=== PATIENT | female | born 1955 | race African-American/Black ===

== ENCOUNTER 2016-12-28 09:29 | Emergency (ER) | payer MEDICAID ==
[~2016-12-28] VITALS: Ht 160 cm; Wt 67.2 kg
[~2016-12-28 09:29] MED LIST: DORZ1SOL2 OU; OMEP10CA37 PO; QUET1TAB67 PO; REME15TA PO
[2016-12-28 09:32] VITALS: BP 109/78; PULSE 81; RESP 16; TEMP 97.6; O2SAT 96
[2016-12-28] MEDS ORDERED: TETANUS/DIPHTHERIA TOXOID ADULT 0.5 ML VIAL IM ONE (09:45)
[2016-12-28] MEDS ORDERED: IBUPROFEN 600 MG TAB PO ONE (09:45)
--- NOTE | 2016-12-28 09:48 | PD ---
HPI Chief Complaint: Pain: Acute or Chronic Time Seen by Provider: 09:38 Travel History International Travel<30 days: No Contact w/Intl Traveler<30days: No Traveled to known affect area: No History of Present Illness HPI 61yo F with PMH of depression and DVT presents to the ED with c/o right calf pain today. Pt states she did step on a nail 2 days ago and it was bleeding but she did not seek medical attention. Tetanus not up to date. States she had blood clot in her leg years ago but does not remember which one and has been off coumadin for years. Denies any fever, chest pain, sob, n/v, abdominal pain, focal weakness or numbness. PFSH Past Medical History Hx Anticoagulant Therapy: No Blood Disorders: Yes Bipolar Disorder: Yes Depression: Yes Diabetes: No Diminished Hearing: No Deep Vein Thrombosis: Yes GERD: Yes Glaucoma: Yes Musculoskeletal: Yes (CHRONIC BACK PAIN) ?: Not Menopausal: Yes Past Surgical History Body Medical Devices: BLOOD CLOT IN LEG Social History Alcohol Use: No Tobacco Use: Yes (ONE PACK/WK) Substance Use: No Allergies-Medications (Allergen,Severity, Reaction): Coded Allergies: No Known Allergies (Verified , 12/28/16) Reported Meds & Prescriptions Reported Meds & Active Scripts Active Reported Seroquel (Quetiapine Fumarate) 25 Mg Tab 25 Mg PO DAILY Omeprazole 20 Mg Tab 20 Mg PO DAILY Mirtazapine 15 Mg Tab 15 Mg PO HS Review of Systems Except as stated in HPI: all other systems reviewed are Neg Physical Exam Narrative GENERAL: 61yo F not in distress. SKIN: Focused skin assessment warm/dry. HEAD: Atraumatic. Normocephalic. CARDIOVASCULAR: Regular rate and rhythm. No murmur appreciated. RESPIRATORY: No accessory muscle use. Clear to auscultation. Breath sounds equal bilaterally. GASTROINTESTINAL: Abdomen soft, non-tender, nondistended. MUSCULOSKELETAL: RLE: +TTP right calf. No erythema, edema, or ecchymoses. Worsening calf pain with dorsiflexion of right foot. Do not see any puncture wounds in plantar aspect of either foot. Sensation intact. DP 2+. NEUROLOGICAL: Awake and alert. No obvious cranial nerve deficits. Motor grossly within normal limits. Normal speech. PSYCHIATRIC: Appropriate mood and affect; insight and judgment normal. Data Data Last Documented VS Vital Signs Date Time Temp Pulse Resp B/P Pulse Ox O2 Delivery O2 Flow Rate FiO2 12/28/16 09:32 97.6 81 16 109/78 96 Orders Us Leg Venous Doppler (12/28/16 ) Tetanus/Diphtheria Tox Adult (Tetanus/Di (12/28/16 09:45) Ibuprofen (Motrin) (12/28/16 09:45) Ondansetron Odt (Zofran Odt) (12/28/16 11:30) MDM Medical Decision Making Medical Screen Exam Complete: Yes Emergency Medical Condition: Yes Interpretation(s) Last Impressions Lower Extremity Ultrasound 12/28/16 0000 Signed Impressions: Service Date/Time: Wednesday, December 28, 2016 10:28 - CONCLUSION: Negative exam with no evidence of deep venous thrombosis. Buck Faith MD Differential Diagnosis DVT vs. musculoskeletal pain vs. geiger cyst Narrative Course 61yo F with history of DVT here with right calf pain. US right lower ext showed no DVT. Pt given ibuprofen and states pain resolved. Pt also given tetanus because she stated she stepped on dirty nail 2 days ago and last tetanus was about 5 years ago. Pt reevaluated at bedside and states pain is better but now a little nauseous and wants something for it. Zofran given which improved nausea. Return precautions given. Diagnosis Primary Impression: Right leg pain Patient Instructions: General Instructions Departure Forms: Tests/Procedures Additional Instructions: Please follow up with your PMD in 3-7 days. Return to the ED if symptoms worsen. Med/Other Pt SpecificInfo: Prescription(s) given Scripts Ibuprofen 400 Mg [id number] Mg PO Q8H PRN (PAIN SCALE 1 TO 4) #20 TAB Ref 0 Prov:Mary Mancini 12/28/16 Disposition: 01 DISCHARGE HOME Condition: Stable ManciniMary deleon Dec 28, 2016 09:48
[2016-12-28] MEDS ORDERED: OMEP20TA PO (09:57)
[2016-12-28] MEDS ORDERED: SERO25TA PO (09:57)
[2016-12-28] MEDS ORDERED: MIRTA15 PO (09:57)
--- NOTE | 2016-12-28 10:47 | RADHPO ---
EXAM DATE/TIME: 12/28/2016 10:28 [facility] COMPARISON: No previous studies available for comparison. INDICATIONS : Right calf pain. Stepped on nail two days ago. MEDICAL HISTORY : Bipolar. DVT. SURGICAL HISTORY : None. ENCOUNTER: Initial ACUITY: 2 day PAIN SCORE: 3/10 LOCATION: Right leg. TECHNIQUE: Venous ultrasound of the leg was performed from the inguinal ligament to the proximal calf. Real-hadley e, color Doppler and spectral tracing, compression and augmentation techniques were used. FINDINGS: There is normal compressibility of the deep venous system from the inguinal region to the proximal ca lf. No echogenic clot is seen in the lumen of the common femoral, femoral, popliteal, and posterior tibial veins. There is a normal response of the venous system to proximal and distal augmentation an d respiration. CONCLUSION: Negative exam with no evidence of deep venous thrombosis. Buck Faith MD on December 28, 2016 at 10:44 Board Certified Radiologist. This report was verified electronically.
[2016-12-28] MEDS ORDERED: IBUP400T20 PO (11:26)
[2016-12-28] MEDS ORDERED: ONDANSETRON ODT 4 MG TAB PO ONE (11:30)
== END 2016-12-28 11:44 | disposition home or self-care (01) ==
LOC: PHED 09:29
DX: M79.604 Pain in right leg (principal); W45.0XXA Nail entering through skin, initial encounter; Z72.0 Tobacco use; Z23 Encounter for immunization
CPT/HCPCS: 90471; 90714; 93971

== ENCOUNTER 2017-03-03 08:09 | Emergency (ER) | payer MEDICAID ==
[~2017-03-03] VITALS: Ht 160 cm; Wt 67.0 kg
[~2017-03-03 08:09] MED LIST changes: -DORZ1SOL2 OU; +IBUP400T20 PO; +MIRTA15 PO; -OMEP10CA37 PO; +OMEP20TA PO; -QUET1TAB67 PO; -REME15TA PO; +SERO25TA PO
[2017-03-03 08:17] VITALS: BP 115/81; PULSE 72; RESP 14; TEMP 98.3; O2SAT 97
[2017-03-03] MEDS ORDERED: NAPROXEN 500 MG TAB PO ONE (08:45)
--- NOTE | 2017-03-03 08:50 | PD ---
HPI Chief Complaint: Musculoskeletal Complaint Time Seen by Provider: 08:45 Travel History International Travel<30 days: No Contact w/Intl Traveler<30days: No Traveled to known affect area: No History of Present Illness HPI This is a 61 year old female who presents to the emergency department having fallen last evening injuring her foot. Patient reports moderate severity pain in her foot, constant, associated with swelling on the top of her foot with no numbness or weakness. She thinks she fell because her foot fell asleep. She didn't hit her head and she denies any other injuries. PFSH Past Medical History Hx Anticoagulant Therapy: No Blood Disorders: Yes Bipolar Disorder: Yes Depression: Yes Diabetes: No Diminished Hearing: No Deep Vein Thrombosis: Yes GERD: Yes Glaucoma: Yes Musculoskeletal: Yes (CHRONIC BACK PAIN) ?: Not LMP: JUNO Menopausal: Yes Past Surgical History Surgical History: No Previous Surgery Body Medical Devices: BLOOD CLOT IN LEG Social History Alcohol Use: No Tobacco Use: Yes (ONE PACK/WK) Substance Use: No Allergies-Medications (Allergen,Severity, Reaction): Coded Allergies: No Known Allergies (Verified , 12/28/16) Reported Meds & Prescriptions Reported Meds & Active Scripts Active Ibuprofen 400 Mg Tab 400 Mg PO Q8H PRN Reported Seroquel (Quetiapine Fumarate) 25 Mg Tab 25 Mg PO DAILY Omeprazole 20 Mg Tab 20 Mg PO DAILY Mirtazapine 15 Mg Tab 15 Mg PO HS Review of Systems Except as stated in HPI: all other systems reviewed are Neg Physical Exam Narrative GENERAL:Well appearing, no acute distress SKIN: Focused skin assessment warm and dry. HEAD: Atraumatic. Normocephalic. EYES: Pupils equal and round. No injection or drainage. ENT: Moist mucous membranes NECK: Trachea midline. CARDIOVASCULAR: Regular rate and rhythm. No murmur appreciated. RESPIRATORY: Clear to auscultation. Breath sounds equal bilaterally. GASTROINTESTINAL: Abdomen soft, non-tender, nondistended. MUSCULOSKELETAL: Tender to palpation on the dorsal aspect of the right foot with some swelling. VASCULAR: 2+ right radial pulse with normal capillary refill of the right foot. NEUROLOGICAL: Awake and alert. No obvious cranial nerve deficits. Moving all extremities. PSYCHIATRIC: Appropriate mood and affect; insight and judgment normal. Data Data Last Documented VS Vital Signs Date Time Temp Pulse Resp B/P Pulse Ox O2 Delivery O2 Flow Rate FiO2 03/03/17 08:17 98.3 72 14 115/81 97 Room Air Orders Foot, Complete ([id number]) (03/03/17 ) Naproxen (Naprosyn) (03/03/17 08:45) MDM Medical Decision Making Medical Screen Exam Complete: Yes Emergency Medical Condition: Yes Interpretation(s) Afebrile, no tachycardia, normotensive Last 24 hours Impressions Foot X-Ray 03/03/17 0000 Signed Impressions: Service Date/Time: Friday, March 03, 2017 09:02 - CONCLUSION: Negative for fracture or dislocation. Follow up in 7-10 days is suggested if symptoms persist. Benton Crocker MD FACR Differential Diagnosis metatarsal fracture, contusion, sprain Narrative Course This is a 61 year old female who presents to the emergency department having sustained an injury to her right foot following a mechanical fall. She has a normal neurovascular exam. X-rays negative for acute fracture. I suspect the patient sustained a contusion. Patient will be discharged home with anti- inflammatories. Diagnosis Primary Impression: Contusion Qualified Code: S90.31XA - Contusion of right foot, initial encounter Referrals: Kimberly Hayden DPM Patient Instructions: General Instructions Additional Instructions: If you develop severe pain, numbness, weakness or coolness of your foot return to the emergency department. Rest, ice, and elevate her foot. If you're not improved in one week follow-up with a sports journalist. Med/Other Pt SpecificInfo: Prescription(s) given Scripts Naproxen 500 Mg [id number] Mg PO BID PRN (PAIN SCALE 4 TO 10) #10 TAB Prov:Vickie Ramirez MD 03/03/17 Disposition: 01 DISCHARGE HOME Condition: Stable Vickie Ramirez MD Mar 03, 2017 08:50
--- NOTE | 2017-03-03 09:12 | RADRPT ---
EXAM DATE/TIME: 03/03/2017 09:02 [facility] COMPARISON: No previous studies available for comparison. INDICATIONS : Right dorsal foot pain post fall last night. MEDICAL HISTORY : Deep venous thrombosis. Gastroesophageal reflux disease. SURGICAL HISTORY : None. ENCOUNTER: Initial ACUITY: 1 day PAIN SCORE: 6/10 LOCATION: Right dorsal foot FINDINGS: Three view examination of the right foot demonstrates no soft tissue swelling, dislocation, or fractu re. The tarsal bones appear intact. The interphalangeal and metatarsophalangeal joints are intact. The calcaneus is intact. Bony mineralization is normal. CONCLUSION: Negative for fracture or dislocation. Follow up in 7-10 days is suggested if symptoms persist. Benton Crocker MD FACR on March 03, 2017 at 9:08 Board Certified Radiologist. This report was verified electronically.
[2017-03-03] MEDS ORDERED: NAPR500T PO (09:30)
== END 2017-03-03 09:40 | disposition home or self-care (01) ==
LOC: PHED 08:09
DX: S90.31XA Contusion of right foot, initial encounter (principal); W19.XXXA Unspecified fall, initial encounter; Z86.718 Personal history of other venous thrombosis and embolism; H40.9 Unspecified glaucoma
CPT/HCPCS: 73630; 99283; E0113